=== PATIENT | male | born 1955 | race American Indian/Alaskan Native ===

== ENCOUNTER 2019-04-24 14:03 | Emergency (ER) | payer MEDICAID, OTHER ==
[2019-04-24] MEDS ORDERED: IBUPROFEN 800 MG TAB PO ONE (18:24)
[2019-04-24] MEDS ORDERED: traMADol 50 MG TAB PO ONE (18:24)
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
--- NOTE | 2019-04-24 19:16 | XRay Report ---
RIGHT HAND 3 VIEWS INDICATION: possible FB. COMPARISON: No relevant prior imaging study available. FINDINGS: No radiodense foreign bodies are identified. No acute skeletal abnormality. No soft tissue swelling. IMPRESSION: 1. No acute findings. Signer Name: Trevor Coats MD Signed: 04/24/2019 7:12 PM Workstation Name: [id number]
[2019-04-24 20:34] VITALS: BP 161/98
== END 2019-04-24 19:25 | disposition home or self-care (01) ==
LOC: ED 14:03
DX: L03.011 Cellulitis of right finger (principal); I11.0 Hypertensive heart disease with heart failure; I50.9 Heart failure, unspecified; Z87.891 Personal history of nicotine dependence; Z79.899 Other long term (current) drug therapy